=== PATIENT | female | born 1965 | race Caucasian/White ===

== ENCOUNTER 2017-05-16 14:09 | Emergency (ER) | payer OTHER ==
--- NOTE | 2017-05-16 14:44 | ERNOTE ---
Neuro HPI ER Record Presenting Symptoms: other - another break through seizure Time Seen by Provider: 05/16/17 14:19 Source: patient Exam Limitations: no limitations Immunizations: IMMUNIZATION HX History of Influenza Vaccine No Hx Pneumococcal Vaccination No Allergies/Adverse Reactions: Allergies Allergy/AdvReac Type Severity Reaction Status Date / Time No Known Allergies Allergy Verified 05/16/17 14:17 Home Medications: HOME MEDICATIONS Hydrochlorothiazide 25 mg PO DAILY 01/13/14 [Last Taken 01/10/15] Aspirin [Aspirin Chewable] 81 mg PO DAILY 07/30/16 [Last Taken Unknown] Fluticasone Propionate [Flovent Diskus] 2 sprays IH BID 07/30/16 [Last Taken Unknown] Levothyroxine Sodium [Synthroid] 25 mcg PO DAILY 07/30/16 [Last Taken Unknown] Olopatadine HCl [Patanase] 2 spray NS BID 07/30/16 [Last Taken Unknown] Clobetasol Propionate [Temovate 0.05% Cream] 1 appl TP BID 05/16/17 [Last Taken Unknown] Folic Acid 1 mg PO DAILY 05/16/17 [Last Taken Unknown] Methotrexate Sodium [Methotrexate] 2.5 mg PO Q7D 05/16/17 [Last Taken Unknown] Multivitamin [One Daily Essential] 1 each PO DAILY 05/16/17 [Last Taken Unknown] Pyridoxine HCl (Vitamin B6) [Vitamin B-6] 100 mg PO BID 05/16/17 [Last Taken Unknown] levETIRAcetam [Keppra] 500 mg PO DAILY 05/16/17 [Last Taken Unknown] levETIRAcetam [Keppra] 750 mg PO HS 05/16/17 [Last Taken Unknown] - History of Present Illness Narrative: Patient presents with more breakthrough temporal lobe seizures. Patient called her neurologist and the neurologist told her to come to the emergency department for a work note. Onset: sudden onset, gone now, >3 hours Severity: mild - Character of Deficits Baseline Cognition: Present: alert, oriented x 4 Baseline Gait: Present: walks w/o assistance Associated Symptoms: Reports: none Review of Systems - Review of Systems Constitutional: Present: See HPI EYE: Present: no symptoms reported ENT: Present: no symptoms reported Respiratory: Present: no symptoms reported Cardiology: Present: no symptoms reported Gastrointestinal/Abdominal: Present: no symptoms reported Genitourinary: Present: no symptoms reported Musculoskeletal: Present: no symptoms reported Skin: Present: no symptoms reported Neurological: Present: See HPI Endocrine: Present: no symptoms reported Hematologic/Lymphatic: Present: no symptoms reported Psych: Present: no symptoms reported - Patient's Past Medical History Patient History - Medical: Hypothyroidism, Migraines, Seizures Patient History - Cardiac/Respiratory: Hypertension, Hyperlipidemia Patient History - Cancer: No Hx of Cancer Patient History - Surgical Procedures: Appendectomy, , Hysterectomy, Tubal Ligation, Other Patient History - Other: None - Family History Mother Family History - Cardiac/Respiratory: No pertinent hx - Social History Living Situations: home Abuse History: No History of abuse Psych History: No pertinent hx Smoking Status: Current every day smoker Have you smoked in the past 12 months: Yes Alcohol Use: occasionally Drug Use: none - Immunizations Hx Pneumococcal Vaccination: No History of Influenza Vaccine: No Physical Exam - Physical Exam General Appearance: Present: wd/wn, alert, no apparent distress Eye Exam: Normal inspection: bilateral, PERRL: bilateral Ears, Nose, Throat: Present: normal ENT inspection, H, normal pharynx Neck: Present: normal inspection, nontender Respiratory: Present: no respiratory distress, normal breath sounds, no accessory muscle use, chest nontender, lungs clear Cardiovascular/Chest: Present: regular rate, rhythm, no murmur, normal peripheral pulses Gastrointestinal/Abdominal: Present: normal bowel sounds, nontender, nondistended, soft, no organomegaly Rectal Exam: Present: deferred Back Exam: Present: normal inspection, normal range of motion Extremity Exam: Present: normal inspection, non-tender, no edema, normal range of motion Neurological Exam: Present: alert, oriented, normal mood/affect Skin Exam: Present: normal color, warm/dry Lymphatic Exam: Present: no adenopathy Mandie Coma Scale - Assess Eye Opening: Spontaneous Motor: Obeys Commands Verbal: Oriented - Total Coma Scale Total: 15 ED Progress - Results and Orders Patient's Lab Results:: I have reviewed the patient's lab results. - Vital Signs Patient's Vital Signs:: I have reviewed the patient's vital signs. Vital Signs: Vital Signs 05/16/17 14:13 Temperature 37 C Pulse Rate 64 Respiratory 16 Rate Blood Pressure 162/92 O2 Sat by Pulse 99 Oximetry - Progress/Reassessment Chief Complaint: Seizure Activity Plan - Plan Plan: We are going to increase the patient's Keppra to 750 mg twice a day and she is to call her neurologist in [place] for any further suggestions. Patient requested 2 weeks off from work and I informed her that we are not the right facility to provide that, I will give her 2 days off which should give her ample time to get a [place] and discuss further time off with her neurologist there. Departure Clinical Impression: Seizure disorder - Departure Disposition: Home self-care Condition: Good Instructions: Epilepsy, [id number]
[2017-05-16 14:48] LABS: Hematocrit 42.1 % (37.0-47.0); Hemoglobin 15.1 gm/dL (12.5-16.0); Mean Cell Volume 92.9 fl (78-100); Mean Corpuscular Hemoglobin 33.3 pg (27-31); Mean Corpuscular Hgb Conc 35.9 g/dl (32-36); Mean Platelet Volume 10.6 fl (6.0-9.5); Neutrophil # 8.4 K/mm3 (1.3-6.0); Neutrophil % 68.1 % (42-75.0); Platelet Count 289 K/mm3 (150-450); Red Blood Count 4.53 M/mm3 (4.2-5.4); White Blood Count 12.3 K/mm3 (4.0-10.5)
[2017-05-16 14:58] LABS: Albumin * 3.4 gm/dl (3.4-5.0); Anion Gap 13.5 mmol/L (6.8-13.8); BUN/Creatinine Ratio 18.7 (9.0-21.6); Bilirubin, Total 0.3 mg/dL (0.0-1.1); Ca. Corrected For Albumin 9.7 mg/dL (8.4-10.2); Calcium * 9.5 mg/dL (7.9-10.9); Carbon Dioxide 26.8 mmol/L (24-32.6); Potassium 3.3 mmol/L (3.4-4.6); Total Protein 7.5 gm/dL (6.2-8.2)
[2017-05-16] MEDS ORDERED: POTASSIUM CHLORIDE 20 MEQ TABLET.SA PO ONE (15:26)
[2017-05-16] MEDS ORDERED: POTASSIUM CHLORIDE 20 MEQ TABLET.SA ONE (15:31)
[2017-05-16 15:34] VITALS: BP 142/73
== END 2017-05-16 15:43 | disposition home or self-care (01) ==
LOC: ER 14:09 → UNDOADMOB 14:49 → MS 14:49 → ER 15:43
DX: G40.909 Epilepsy, unspecified, not intractable, without status epilepticus (principal); Z72.0 Tobacco use; E03.9 Hypothyroidism, unspecified; I10 Essential (primary) hypertension

== ENCOUNTER 2019-08-27 08:42 | Inpatient (IN) ==
--- NOTE | 2019-08-15 15:15 | ANES ---
Anesthesia Pre Procedure Eval HOME MEDICATIONS ALPRAZolam [Xanax] 0.25 mg PO PRN PRN 06/04/18 [Last Taken Unknown] Aspirin [Aspirin EC] 81 mg PO DAILY 06/04/18 [Last Taken Unknown] Levothyroxine Sodium [Synthroid] 25 mcg PO DAILY 06/04/18 [Last Taken Unknown] Methotrexate Sodium [Methotrexate] 20 mg PO WE 06/04/18 [Last Taken Unknown] Multivitamin [Multivitamins] 1 ea PO DAILY 06/04/18 [Last Taken Unknown] Rosuvastatin Calcium [Crestor] 10 mg PO DAILY 06/04/18 [Last Taken Unknown] folic acid 1 mg tablet 1 mg PO .COMPLEX 08/03/18 [Last Taken Unknown] metoprolol succinate ER 50 mg tablet,extended release 24 hr 100 mg PO DAILY tab 03/29/19 [Last Taken Unknown] calcium carbonate-vitamin D3 600 mg (1,500 mg)-400 unit capsule 2 cap PO DAILY cap 05/14/19 [Last Taken Unknown] melatonin 5 mg capsule 5 mg PO HS cap 05/14/19 [Last Taken Unknown] risperidone 0.5 mg tablet 1 mg PO HS #30 tab 05/14/19 [Last Taken Unknown] duloxetine 60 mg capsule,delayed release 60 mg PO DAILY 07/24/19 [Last Taken Unknown] Allergies/Adverse Reactions: Allergies Allergy/AdvReac Type Severity Reaction Status Date / Time doxepin AdvReac heart races Verified 08/15/19 08:30 topiramate [From Topamax] AdvReac depression, Verified 08/15/19 08:30 altered LOC - Planned Procedure Planned Procedure: R Arthroplasty Total Knee Medication List Reviewed:: Yes Allergies Verified: Yes Medical History (Updated 08/15/19 @ 08:29 by Estefani Young RN) Bilateral knee pain Onset Date: ~2017 CPAP Onset Date: Unknown JAIRO- Does not wear CPAP due to clausterphobia CVA (cerebral vascular accident) no residual effects Dyshidrotic eczema Onset Date: 06/19/16 Fatigue Onset Date: 04/07/17 Hypertension Hypothyroidism IBS (irritable bowel syndrome) Onset Date: Unknown Migraine Onset Date: Unknown Mild concentric left ventricular hypertrophy Onset Date: 09/03/14 Prolapsed bladder Psoriasis of hands and feet Psychogenic nonepileptic seizure Onset Date: ~2015 pt states she has pseudoseizures, last was 08/10/19- triggered by bright lights, anxiety, stress Rhinitis, allergic Onset Date: 07/09/15 Seizures Onset Date: 10/13/16 abnormal EEG with occasional left temporal sharp waves, consistent with focal left convulsive tendency Tubular adenoma of colon Onset Date: Unknown Surgical History (Updated 08/15/19 @ 08:31 by Estefani Young RN) H/O colonoscopy Onset Date: 06/2019 [facility]-tubular adenoma. Recheck 5 yrs., 06/2019- [facility] History of bladder repair surgery History of bladder surgery Onset Date: 2010 "tied up" History of delivery History of hysterectomy Hx of LASIK Onset Date: 06/2012 Hx of appendectomy Onset Date: 1976 Hx of heart artery stent RCA S/P tubal ligation Onset Date: 1990 Family History (Updated 07/28/18 @ 15:10 by Drew Waller RN) Father Myocardial infarction Mother Hypertension Heart disease - Airway/Neck/Teeth Within Normal Limits:: Yes Teeth Condition: poor condition Mallampatti Score: 2 Thyromental (T-M) distance: > 6 cm Mandibulo Hyoid distance: > 3 cm - Respiratory Smoking Status: Current every day smoker Discussed smoking cessation including day of surgery: Yes - Cardiovascular Tolerate Activity: Fair Heart Sounds: S1 & S2, Regular - Anesthesia Assessment and Plan ASA Class: PS, III Anesthesia Type Plan: Block - Right ultrasound guided adductor canal nerve bloc k, Spinal
[~2019-08-27 08:42] MED LIST: ISOPROPYL ALCOHOL 480 APPL BTL MC ONE; MORPHINE SULFATE 15 MG TABLET.SA PO PRN; ROPIVACAINE HCL/PF 100 MG, EPINEPHrine 0.2 MG, KETOROLAC TROMETHAMINE 30 MG in NORMAL S... IJ PRN; TRANEXAMIC ACID 1,000 MG in NORMAL SALINE 100 ML IV PRN; ceFAZolin SODIUM 1 GM VIAL IV PRN; ceFAZolin SODIUM 1 GM VIAL ONE
[2019-08-27] MEDS: RINGER'S SOLUTION,LACTATED 1,000 ML IV PRN ×3 (09:32→13:02)
[2019-08-27] MEDS ORDERED: fentaNYL CITRATE/PF 50 MCG/ML AMPUL ONE (11:01)
[2019-08-27] MEDS ORDERED: LIDOCAINE HCL 20 ML VIAL ONE (11:01)
[2019-08-27] MEDS ORDERED: MIDAZOLAM HCL/PF 5 MG/ML VIAL ONE (11:01)
[2019-08-27] MEDS ORDERED: NALOXONE HCL 0.4 MG/ML VIAL ONE (11:01)
[2019-08-27] MEDS ORDERED: ONDANSETRON HCL/PF 2 MG/ML VIAL ONE (11:01)
[2019-08-27] MEDS ORDERED: PROPOFOL VIAL IV ONE (11:02)
[2019-08-27] MEDS ORDERED: BUPIVACAINE HCL/EPINEPHRINE 50 ML VIAL ONE (11:02)
[2019-08-27] MEDS ORDERED: SUCCINYLCHOLINE CHLORIDE 20 MG/ML VIAL ONE (11:03)
--- NOTE | 2019-08-27 12:22 | ANES ---
Anesthesia Procedure Note Procedure Note: ANESTHESIA PROCEDURE NOTE Date of Procedure: 08/27/2019. Time of procedure: 1120. Performed by: Dioni Quick CRNA Concrete Mixer: None. Preprocedure diagnosis: Right knee degenerative joint disease. Post procedure diagnosis: Same. Procedure: Right ultrasound guided adductor canal block for postoperative analgesia. Indications: The patient is a 53-year-old female, requesting right ultrasound- guided abductor canal block for postoperative analgesia related to right total knee arthroplasty. Findings: See below. Details of the procedure: The tissue over the intended target site was cleansed with ChloraPrepand draped in a sterile fashion. 2 ml Lidocaine 1 % was infiltrated to the skin and subcutaneous tissue at the intended target site. Under sterile technique and ultrasound guidance a 20-gauge block needle was inserted through the right sartorius muscle to the saphenous nerve just anterior and medial to the superficial femoral artery and vein. 15 mL's of 0.5% bupivacaine was injected after negative aspiration for blood. Needle tip and spread of local anesthetic surrounding the saphenous nerve was observed throughout the injection with real time ultrasound visualization. The needle was then removed intact. No complications were noted. The images were retained in the Hospital medical database. EBL: Minimal. Fluids: N/A. Specimen: N/A. Post procedure condition: The patient tolerated the procedure well. No complications were noted. Thank you for this consultation. Dioni Quick CRNA
[2019-08-27] MEDS ORDERED: MORPHINE SULFATE 2 MG/ML DISP.SYRIN IV PRN (12:58)
[2019-08-27] MEDS ORDERED: MAGNESIUM HYDROXIDE 30 ML UDC PO PRN (12:58)
[2019-08-27] MEDS ORDERED: ZOLPIDEM TARTRATE 5 MG TABLET PO PRN (12:58)
[2019-08-27] MEDS ORDERED: MAG HYDROX/ALUMINUM HYD/SIMETH 30 ML UDC PO PRN (12:58)
[2019-08-27] MEDS ORDERED: ACETAMINOPHEN 500 MG TABLET PO PRN (12:58)
[2019-08-27] MEDS ORDERED: DEXTROSE 5%-LACTATED RINGERS 1,000 ML IV PRN (12:58)
[2019-08-27] MEDS ORDERED: diphenhydrAMINE HCL 50 MG/ML VIAL IV PRN (12:58)
[2019-08-27] MEDS ORDERED: ALPRAZolam 0.25 MG TABLET PO PRN (13:04)
--- NOTE | 2019-08-27 13:09 | OR ---
Operative Report - Dictated Report Narrative: Date: 08/27/2019 Preoperative diagnosis: Right knee degenerative joint disease. Postoperative diagnosis: Right knee degenerative joint disease. Procedure: Right total knee arthroplasty. Surgeon: Refugio Montero M.D. Garment Cutter: Geo Guerra PA-C (provided and essential set of skilled, educated hands that assisted with transfer, positioning, prepping, draping, manipulation, retraction, placement of jigs, injection, insertion of implants, irrigation, closure wounds, and dressings all of which could not be performed by the available surgical crew) Anesthesia: Spinal with regional block and local periarticular joint injection. Complications: None Specimens: Bone. Estimated blood loss: Minimal. Tourniquet time: 75 Minutes at 325 millimeters of mercury. Retained implants: Depuy Attune size 4 right lugged cemented posterior stabilized femoral component. Size 4 fixed-bearing cemented tibial platform. 4 by 5 millimeter posterior stabilized cross-linked tibial insert. 38 millimeter medialized patella button. Indications: Mrs. Steele is a 53-year-old female who has had long-standing right knee pain and arthrosis. This patient was followed in my clinic for period of time with significant complaints of right knee pain consistent with arthritic changes. She had failed conservative measures including, but not limited to, activity modification, passage of time, medications, and other conservative measures. Patient wished to proceed with surgical treatment. The risks, benefits, and alternatives were discussed in clinic. The risks of , blood clots, bleeding, infection, nerve/tendon blood vessel/ injury, malposition of components, intraoperative fracture, postoperative limited range of motion, persistent pain, failure of components, and need for additional procedures. Patient wished to proceed consent was obtained after answering all questions. Procedure: After marking the correct extremity on the floor, the patient was taken to the operating room. A timeout was performed. IV antibiotics consisting of Ancef were administered prior to the procedure. A regional followed by spinal anesthetic was induced by anesthesia, per my request, on the operative table with all bony prominences well-padded. Rivera catheter was placed, and a bump was placed under the operative side buttock. SCDs and FROYLAN hose were utilized on the nonoperative leg. A well-padded tourniquet was applied to the operative thigh. The operative leg was then pre-scrubbed with alcohol, prepped, and draped in a standard sterile fashion. After exsanguinating the extremity with an Esmarch bandage, the tourniquet was inflated. After marking out the anterior knee for standard incision centered over the patella, the skin was incised and dissected down to the joint retinaculum. The joint retinaculum was marked out as well as the horizontal axis of the patella, and a standard medial parapatellar arthrotomy was then made. The most proximal aspect of the quadriceps tendon and the patella tendon insertion were protected from release. A partial synovectomy was performed as well as a resection of the infrapatellar fat pad. The distal femoral fat pad proximal to the trochlea was also resected using cautery. The soft tissues were elevated off the medial as pect of the proximal tibia using a Shafer elevator ensuring that we did not transect the medial collateral ligament. Upon initial evaluation range of motion was approximately 0 degrees to 130 degrees of flexion. There were signs of advanced arthrosis in the medial and patellofemoral joint spaces. There was a large chondral defect on the femoral condyle laterally as well. There were large marginal osteophytes which were removed with a rongeur. The knee was hyperflexed and the patella was tucked laterally. Protecting the surrounding soft tissues with Homans, an entry drill was placed down the femoral canal using Whitesides line for guidance into the entry point. The intramedullary femoral alignment joce was utilized in order to cut the distal femur in 5 degrees of valgus resecting 10 millimeters of bone. Next the distal femur was sized to a size 4. A posterior referencing guide was utilized to place the distal femoral cutting block in 3 degrees of external rotation. This was pinned into place. The rotation was confirmed both visually and based on anatomic landmarks. The 4 in 1 cutting jig of the appropriate size was utilized in order to make all bony cuts. The angle wing was used to ensure no notching. Retractors were utilized in order to protect surrounding soft tissues. This cut did not result in any excessive notching. We then cut the box centered over the distal femur. This allowed for resection of the anterior and posterior cruciate ligaments. I then turned my attention to the preparation of the tibia. Using an extra medullary tibial alignment joce, 3 millimeters of bone was resected off the medial articular surface. This was made perpendicular to the mechanical axis of the joint with the alignment joce centered over the ankle mortise. The alignment joce was checked and was noted to be parallel to the mechanical axis, centered over the medial one third of the tibial tubercle, paralleling the anterior surface of the tibia. We then turned our attention to the remaining meniscus and soft tissues. These were removed while protecting the surrounding ligaments and soft tissues. The marginal osteophytes off the anterior, posterior, medial, lateral aspects of the femur and tibia were removed. The tibia was sized out to a size 4. Next the tibia was drilled and punched in an externally rotated position. Next the trial femur and a series of tibial inserts were utilized in order to allow for full extension and maximal flexion. It was found that a 5 millimeter insert gave the best range of motion and stability at multiple flexion points as well as at full extension there was less than 2 mm of gapping both medially and laterally. There is minimal anterior translation with the knee at 90 degrees of flexion and no signs of being able to dislocate the knee. The patella was then prepared. The initial thickness was 23 millimeters. This was reamed down to 13 millimeters parallel to the anterior surface of the patella. It was sized out to a size 38 medialized patella button. This was then drilled and trialed. Without any medial restraint the patella tracked appropriately and did not sublux or dislocate. At this point, it was felt these were the appropriate sized implants, and all trials were removed. The standard periarticular joint injection consisting of ropivacaine, Toradol, and epinephrine were injected into the periarticular joint tissues. The bony surfaces were thoroughly irrigated with a pulsatile-suction saline irrigation device. A bone plug from the prior resected anterior chamfer cut was placed into the drill hole at the distal femur. The bony surfaces were then dried in preparation for placement of the implants. The cement was vacuum mixed per the telegraphic typewriter mechanic's instructions. The cement was placed on the dry bony surfaces and posterior aspect of the implants. The implants were impacted into place, removing all extruded cement. At this point anesthesia administered tranexamic acid per protocol intravenously. The knee was placed in extension with axial loading with the trial insert while the cement cured. Once the cement cured, all remaining extruded cement was removed. The knee was placed through a range of motion with the trial insert to ensure appropriate range of motion and stability. Final range of motion was approximately 0 to 125 degrees. The knee was again thoroughly irrigated with pulsatile saline lavage. The final polyethylene insert was then impacted into place ensuring no retained soft tissues. The remaining periarticular joint injection was injected. A medium Hemovac drain was placed exiting superior laterally. The knee was then placed over a triangle and the arthrotomy was closed with interrupted #1 Vicryl after thoroughly irrigating the joint. The deep and subcutaneous tissues were closed with interrupted 0 and 3-0 Vicryl respectively. Skin was closed with a running subcutaneous 3-0 Monocryl and Prineo Dermabond dressing. 4 x 4's, Sof-Rol, and a full leg Kurtis wrap were applied. All sponge, needle, blade, and instrument counts were correct prior to closing the wounds. Postoperative condition: The patient was awoken and transferred to the [facility] care unit in stable condition. Plan is to be admitted to the inpatient medical/surgical floor postoperatively for 24 hours of IV antibiotics, physical therapy, occupational therapy, and medical comanagement. Patient will be weightbearing as tolerated with range of motion as tolerated. DVT prophylaxis will be with SCDs, FROYLAN hose, and pharmacological anticoagulation. Anticipated hospital stay is approximately 1-3 days.
--- NOTE | 2019-08-27 13:41 | ANES ---
Post Anesthesia Discharge - Transfer of Care Transfer of Care handoff given to nurse: Yes - Discharge from PACU Discharge from PACU when meets criteria: Yes
--- NOTE | 2019-08-27 13:41 | ANES ---
Post Anesthesia Assessment - Vital Signs Vitals: Last Vital Signs Temp 36.5 C 08/27/19 13:25 Pulse 93 08/27/19 13:25 Resp 20 08/27/19 13:25 BP 97/69 08/27/19 13:25 Pulse Ox 94 08/27/19 13:25 Airway Patency: Normal - Mental Status Level Of Consciousness: Awake - Pain Level Pain Score: 1 - N/V Assessment Nausea/Vomiting Presence: None Dehydration:: No
[2019-08-27] MEDS: oxyCODONE HCL/ACETAMINOPHEN 1 TAB TABLET PO PRN ×2 (14:46→21:46)
[2019-08-27] MEDS: KETOROLAC TROMETHAMINE 15 MG/ML VIAL IV SCH ×2 (14:47→18:46)
[2019-08-27] MEDS: ceFAZolin SODIUM 1 GM in DEXTROSE 5 % IN WATER 100 ML IV SCH ×4 (14:48→21:44)
[2019-08-27] MEDS: ONDANSETRON HCL/PF 2 MG/ML VIAL IV PRN (18:41)
[2019-08-27] MEDS ORDERED: SENNOSIDES/DOCUSATE SODIUM 1 TAB TABLET PO SCH (21:00)
[2019-08-27] MEDS ORDERED: MELATONIN 3,000 MCG TABLET PO SCH (21:00)
[2019-08-27] MEDS ORDERED: risperiDONE 1 MG TABLET PO SCH (21:00)
[2019-08-27] MEDS ORDERED: AMITRIPTYLINE HCL 25 MG TABLET PO SCH (21:00)
[2019-08-27] MEDS ORDERED: ROSUVASTATIN CALCIUM 10 MG TABLET PO SCH (21:00)
[2019-08-27] MEDS: MORPHINE SULFATE 15 MG TABLET.SA PO SCH (21:46)
[2019-08-28] MEDS: KETOROLAC TROMETHAMINE 15 MG/ML VIAL IV SCH ×3 (00:56→12:31)
[2019-08-28] MEDS: oxyCODONE HCL/ACETAMINOPHEN 1 TAB TABLET PO PRN ×2 (01:50→07:09)
[2019-08-28] MEDS: ceFAZolin SODIUM 1 GM in DEXTROSE 5 % IN WATER 100 ML IV SCH ×2 (03:21)
[2019-08-28 06:22] LABS: Hematocrit 37.7 % (37.0-47.0); Hemoglobin 12.2 gm/dL (12.5-16.0); Mean Cell Volume 104.4 fl (78-100); Mean Corpuscular Hemoglobin 33.8 pg (27-31); Mean Corpuscular Hgb Conc 32.4 g/dl (32-36); Mean Platelet Volume 10.5 fl (8-12.5); Platelet Count 253 K/mm3 (150-450); Red Blood Count 3.61 M/mm3 (4.2-5.4); Red Cell Distribution Width 13.5 % (11.5-14.0); White Blood Count 10.8 K/mm3 (4.0-10.5)
[2019-08-28 06:30] LABS: Anion Gap 6.2 mmol/L (6.8-13.8); BUN/Creatinine Ratio 13.4 (9.0-21.6); Calcium * 7.8 mg/dL (7.9-10.9); Carbon Dioxide 28.7 mmol/L (24-32.6); Estimated Creat Clear 59.7; Potassium 3.9 mmol/L (3.4-4.6)
[2019-08-28] MEDS ORDERED: LEVOTHYROXINE SODIUM 25 MCG TABLET PO SCH (07:00)
[2019-08-28] MEDS ORDERED: METOPROLOL SUCCINATE 50 MG TABLET.SA PO SCH (09:00)
[2019-08-28] MEDS ORDERED: MULTIVITAMINS 1 CAP CAPSULE PO SCH (09:00)
[2019-08-28] MEDS ORDERED: CALCIUM CARBONATE/VITAMIN D3 1 TAB TABLET PO SCH (09:00)
[2019-08-28] MEDS ORDERED: FOLIC ACID 1 MG TABLET PO SCH (09:00)
[2019-08-28] MEDS: ONDANSETRON HCL/PF 2 MG/ML VIAL IV PRN (09:29)
[2019-08-28] MEDS: MORPHINE SULFATE 15 MG TABLET.SA PO SCH (09:34)
[2019-08-28] MEDS ORDERED: HYDROcodone/ACETAMINOPHEN 1 EACH TABLET PO PRN (11:18)
[2019-08-28] MEDS ORDERED: ENOXAPARIN SODIUM 40 MG/0.4 ML SYRG SC SCH (11:58)
--- NOTE | 2019-08-28 12:37 | DS ---
(1) Status post total right knee replacement Problem: Acute (2) Acute blood loss anemia Problem: Acute (3) Seizure disorder Problem: Chronic (4) CVA (cerebral infarction) Problem: Chronic (5) Hypertension Problem: Chronic Date of Discharge:: 08/28/19 Description of Stay: Mrs. Steele was admitted to the floor after undergoing right total knee arthroplasty. Tolerated this well. Was admitted to the floor postoperatively for 24 hours of IV antibiotics, pain control, medical comanagement, and occupational and physical therapy. OT and PT were consulted to assist with activities of daily living and ambulation. Was made weightbearing as tolerated with range of motion as tolerated. Pain was initially controlled with IV re gimen. This was transitioned to oral once tolerating a by mouth intake. Was resumed on home diet and medications. Had a Rivera catheter inserted and the operating room which was discontinued on postoperative day 1. A drain was placed intraoperatively into the knee which was discontinued on postoperative day 1. Lovenox SCD and FROYLAN hose were utilized for DVT prophylaxis. Vital signs remained stable to the hospital course. Serial labs were obtained which showed a final hemoglobin of 12.2 grams down from 14.1 g preoperatively. BMP was reviewed and was stable. Physical examination throughout the hospital course showed an extremity that had sensation that was intact to light touch, palpable pulses, a benign wound, motor intact to the toes, ankle, and knee. Knee range of motion was approximately 5 degrees to 70 degrees. Once an oral pain regimen was tolerated and physical therapy goals were met, it was felt that they were stable for discharge to home. Instructions: Continue with weightbearing as tolerated and range of motion as tolerated. It is OK to shower on the wound if it is not draining. If you note any drainage or for comfort you can cover with dry gauze and tape. Change every 2-3 days as needed. Continue with physical therapy. Resume home diet. Report any fever over 101.5 Fahrenheit, uncontrolled pain, increased drainage, foul odor of drainage, new or increased calf pain or shortness of breath, or any other significant complaints. A 325mg dialy aspirin will be started after finishing anticoagulation if not allergic. Continue with FROYLAN hose on the operative extremity until instructed otherwise. No driving until instructed otherwise. Follow up in approximately 10-14 days. Procedures Performed: see notes below List Procedures: Status post right total knee replacement Results and Findings: Lab Pending Results 08/28/19 05:30: WBC 10.8 H, RBC 3.61 L, Hgb 12.2 L, Hct 37.7, MCV 104.4 H, MCH 33.8 H, MCHC 32.4, RDW 13.5, Plt Count 253, MPV 10.5 08/28/19 06:00: Sodium 137, Plasma Sodium 137, Potassium 3.9, Chloride 106, Carb on Dioxide 28.7, Anion Gap 6.2 L, BUN 11, Creatinine 0.82, Est GFR (Non-Af Amer) 77, BUN/Creatinine Ratio 13.4, Random Glucose 101, Calcium 7.8 L Discharge Location: Home Disposition: Home self-care Condition: Good Discharge Activity: Activity as tolerated, Weight bearing, Other - With walker Discharge Diet: Low salt Referrals: Refugio Montero MD [Staff Physician] - 09/18/19 10:30 am Problem Oriented Discharge Instructions to Patient/Family: Total Knee Replacement, Care After, [id number] Additional Patient Instructions (free text): Physical Therapy appointment at [facility] on August 30 at 11:00am. Please fax PT order to [phone]. Follow up in the Orthopedic Office with Dr Montero on TuesdaySeptember 18 at 10:30am. Prescriptions (Any new or edited meds): Enoxaparin Sodium [Lovenox] 40 mg SC Q24H #7 disp.syrin Transmission Status: Pending to [employer] #[id number] Morphine Sulfate [Ms Contin] 15 mg PO Q12H #20 tablet.sa Transmission Status: Received by [employer] #[id number] HYDROcodone/ACETAMINOPHEN [[place] 5-325] 2 ea PO Q6H PRN #60 tab PRN Reason: Moderate pain (Pain scale 4-6) Transmission Status: Received by [employer] #[id number] Promethazine HCl [Phenergan (Promethazine)] 25 mg PO Q6H PRN #30 tab PRN Reason: nausea/vomiting Transmission Status: Pending to [employer] #[id number] Sennosides/Docusate Sodium [Senokot-S] 2 tab PO HS #30 tab Transmission Status: Pending to [employer] #[id number] Complete Home Medications List: Complete Home Medication List: ALPRAZolam [Xanax] 0.25 mg PO PRN PRN 06/04/18 Aspirin [Aspirin EC] 81 mg PO DAILY 06/04/18 Levothyroxine Sodium [Synthroid] 25 mcg PO DAILY 06/04/18 Methotrexate Sodium [Methotrexate] 20 mg PO WE 06/04/18 Multivitamin [Multivitamins] 1 ea PO DAILY 06/04/18 Rosuvastatin Calcium [Crestor] 10 mg PO DAILY 06/04/18 folic acid 1 mg tablet 1 mg PO .COMPLEX 08/03/18 metoprolol succinate 50 mg tablet,extended release 24 hr 100 mg PO DAILY tab 03/29/19 calcium carbonate-vitamin D3 600 mg (1,500 mg)-400 unit capsule 2 cap PO DAILY cap 05/14/19 melatonin 5 mg capsule 5 mg PO HS cap 05/14/19 risperidone 0.5 mg tablet 1 mg PO HS #30 tab 05/14/19 Amitriptyline HCl [Elavil] 25 mg PO HS 08/27/19 Enoxaparin Sodium [Lovenox] 40 mg SC Q24H #7 disp.syrin 08/28/19 HYDROcodone/ACETAMINOPHEN [[place] 5-325] 2 ea PO Q6H PRN #60 tab 08/28/19 Morphine Sulfate [Ms Contin] 15 mg PO Q12H #20 tablet.sa 08/28/19 Promethazine HCl [Phenergan (Promethazine)] 25 mg PO Q6H PRN #30 tab 08/28/19 Sennosides/Docusate Sodium [Senokot-S] 2 tab PO HS #30 tab 08/28/19 Amb Orders for Discharge: PT Evaluation and Treatment* Facility: [facility], Location: Rehabilitation Services
[2019-08-28 14:15] VITALS: BP 101/64
[2019-08-29] MEDS ORDERED: METOPROLOL SUCCINATE 100 MG TABLET.SA PO SCH (09:00)
== END 2019-08-28 14:15 | disposition home or self-care (01) | DRG 470 ==
LOC: MS 08:42 → EDSTATUS 10:45
PROVIDERS: ADMIT Orthopaedic Surgery; ATTEND Orthopaedic Surgery
DX: I25.10 Atherosclerotic heart disease of native coronary artery without angina pectoris; G40.909 Epilepsy, unspecified, not intractable, without status epilepticus; I10 Essential (primary) hypertension; D62 Acute posthemorrhagic anemia; M17.11 Unilateral primary osteoarthritis, right knee
CPT/HCPCS: 36415; 73560; 80048; 85027; 97116; 97161; 97165; J2405